=== PATIENT | male | born 1960 | race Caucasian/White ===

== ENCOUNTER 2023-06-12 05:52 | Inpatient (IN) | payer OTHER ==
[2023-06-12 06:27] LABS: #Basophils 0.1 thou/uL (0.0-0.2); #Monocytes 0.6 thou/uL (0.11-0.59); #Neutrophils 5.6 thou/uL (1.40-6.50); %Basophils 0.8 % (0.0-1.0); %Eosinophils 0.4 % (0.0-10.0); %Lymphocytes 20.8 % (21.0-51.0); %Monocytes 7.5 % (0.0-10.0); %Neutrophils 70.2 % (42.0-75.0); Hematocrit 44.3 % (42.0-52.0); Hemoglobin 14.5 g/dL (14.0-18.0); Mean Corpuscular HGB CONC 32.7 g/dL (32.0-36.0); Mean Corpuscular Hemoglobin 29.5 pg (27.0-31.0); Mean Corpuscular Volume 90.2 fl (78.0-98.0); Mean Platelet Volume 10.6 fL (7.4-10.4); Platelet Count 255 10x3/uL (130-400); RBC Distribution Width 12.8 % (11.5-14.5); Red Blood Cell (RBC) Count 4.91 mill/uL (4.70-6.10)
[2023-06-12 06:54] LABS: Troponin I Less than 0.010 ng/mL (< 0.028)
[2023-06-12 07:11] LABS: ALT (SGPT) 15 U/L (8-55); AST (SGOT) 14 U/L (5-34); Albumin 3.6 g/dL (3.4-4.8); Alkaline Phosphatase 47 U/L (40-110); Anion Gap 13 mmol/L (10-20); BUN (Urea Nitrogen) 15 mg/dL (8.4-25.7); Bilirubin, Total 0.4 mg/dL (0.2-1.2); Calc. Creatinine Clearance 0 mL/min (70-130); Calcium 8.6 mg/dL (7.8-10.44); Carbon Dioxide 24 mmol/L (23-31); Chloride 104 mmol/L (98-107); Estimated GFR 53; Globulin 2.8 g/dL (2.4-3.5); Glucose 149 mg/dL (80-115); Potassium 4.6 mmol/L (3.5-5.1); Protein, Total 6.4 g/dL (5.8-8.1); Sodium 136 mmol/L (136-145)
[2023-06-12] MEDS ORDERED: Aspirin Chewable 81 MG TAB ONE (07:12)
[2023-06-12] MEDS ORDERED: Acetaminophen 500 MG TAB ONE (07:12)
[2023-06-12] MEDS ORDERED: Sodium Chloride 0.9% 1,000 ML IV SCH (09:30)
[2023-06-12 10:13] LABS: Troponin I Less than 0.010 ng/mL (< 0.028)
[2023-06-12 13:31] VITALS: BMI 33.0
[2023-06-12 14:27] LABS: Troponin I Less than 0.010 ng/mL (< 0.028)
[2023-06-12] MEDS ORDERED: Ketorolac Tromethamine 30 MG/ML VIAL IVP SCH (15:00)
[2023-06-12] MEDS: Ondansetron ODT 4 MG TAB PO PRN ×2 (15:12→20:36)
[2023-06-12] MEDS: Acetaminophen 325 MG TAB PO PRN ×2 (15:12→20:36)
[2023-06-12] MEDS: Carvedilol 6.25 MG TAB PO SCH (16:35)
[2023-06-12] MEDS ORDERED: Carvedilol 6.25 MG TAB PO SCH (17:00)
[2023-06-12] MEDS ORDERED: Nitroglycerin 0.4 MG TAB (25 Tab Bottle) SL PRN (17:02)
[2023-06-12] MEDS ORDERED: traZODone HCl 50 MG TAB PO PRN (17:40)
[2023-06-12] MEDS ORDERED: Promethazine 25 MG TAB PO SCH (18:30)
[2023-06-12] MEDS: Atorvastatin Calcium 40 MG TAB PO SCH (20:36)
[2023-06-12] MEDS ORDERED: Lisinopril 20 MG TAB PO SCH (21:00)
[2023-06-12] MEDS: Melatonin 3 MG TAB PO PRN (21:45)
[2023-06-13 05:03] LABS: Anion Gap 12 mmol/L (10-20); BUN (Urea Nitrogen) 16 mg/dL (8.4-25.7); Calc. Creatinine Clearance 79 mL/min (70-130); Calcium 8.7 mg/dL (7.8-10.44); Carbon Dioxide 23 mmol/L (23-31); Chloride 100 mmol/L (98-107); Estimated GFR 57; Glucose 115 mg/dL (80-115); Potassium 4.3 mmol/L (3.5-5.1); Sodium 131 mmol/L (136-145)
[2023-06-13] MEDS: Hydrochlorothiazide 25 MG TAB PO SCH (08:37)
[2023-06-13] MEDS: Acetaminophen 325 MG TAB PO PRN ×3 (08:37→17:34)
[2023-06-13] MEDS: Lisinopril 20 MG TAB PO SCH (08:38)
[2023-06-13] MEDS: Citalopram 20 MG TAB PO SCH (08:39)
[2023-06-13] MEDS: Aspirin 81 mg Enteric Coated Tablet PO SCH (08:39)
[2023-06-13] MEDS: Carvedilol 6.25 MG TAB PO SCH ×2 (08:39→17:34)
[2023-06-13] MEDS ORDERED: Non-Formulary Item 1 EACH (Trazodone Hcl [Trazodone Hcl] 100 MG Tablet) PO SCH (09:00)
[2023-06-13] MEDS: Melatonin 3 MG TAB PO PRN (21:41)
[2023-06-13] MEDS: Atorvastatin Calcium 40 MG TAB PO SCH (21:41)
[2023-06-14] MEDS: Lisinopril 20 MG TAB PO SCH (06:07)
[2023-06-14] MEDS: Citalopram 20 MG TAB PO SCH (06:07)
[2023-06-14] MEDS: Aspirin 81 mg Enteric Coated Tablet PO SCH (06:08)
[2023-06-14] MEDS: Acetaminophen 325 MG TAB PO PRN ×3 (07:52→18:23)
[2023-06-14] MEDS ORDERED: ADENOSINE 60 MG/20 ML SDV ONE (09:05)
[2023-06-14] MEDS: Carvedilol 6.25 MG TAB PO SCH ×2 (11:50→16:44)
[2023-06-14] MEDS: Hydrochlorothiazide 25 MG TAB PO SCH (11:51)
[2023-06-14] MEDS ORDERED: Lidocaine 1% w/Epinephrine 1:100K 20 ML VIAL ONE (12:14)
[2023-06-14] MEDS: Atorvastatin Calcium 40 MG TAB PO SCH (21:03)
[2023-06-14] MEDS: Melatonin 3 MG TAB PO PRN (21:04)
[2023-06-15] MEDS: Carvedilol 6.25 MG TAB PO SCH ×2 (06:33→16:59)
[2023-06-15] MEDS: Acetaminophen 325 MG TAB PO PRN ×2 (06:34→12:30)
[2023-06-15] MEDS: Lisinopril 20 MG TAB PO SCH (08:39)
[2023-06-15] MEDS: Citalopram 20 MG TAB PO SCH (08:39)
[2023-06-15] MEDS: Hydrochlorothiazide 25 MG TAB PO SCH (08:41)
[2023-06-15] MEDS: Aspirin 81 mg Enteric Coated Tablet PO SCH (08:41)
[2023-06-15] MEDS ORDERED: Vancomycin 1 GM in Premix Bag 1 BAG IVPB SCH (12:00)
[2023-06-15] MEDS: hydrALAZINE 25 MG TAB PO PRN ×3 (13:08→20:38)
[2023-06-15] MEDS: Melatonin 3 MG TAB PO PRN (20:28)
[2023-06-15] MEDS: Atorvastatin Calcium 40 MG TAB PO SCH (20:28)
[2023-06-15] MEDS ORDERED: hydrOXYzine 25 MG TAB PO SCH (20:30)
[2023-06-16] MEDS: hydrALAZINE 25 MG TAB PO PRN ×2 (04:27→15:37)
[2023-06-16] MEDS ORDERED: Amlodipine 5 MG TAB PO SCH (09:00)
[2023-06-16] MEDS: Hydrochlorothiazide 25 MG TAB PO SCH (09:22)
[2023-06-16] MEDS: Lisinopril 20 MG TAB PO SCH (09:23)
[2023-06-16] MEDS: Carvedilol 6.25 MG TAB PO SCH ×2 (09:23→17:11)
[2023-06-16] MEDS: Citalopram 20 MG TAB PO SCH (09:23)
[2023-06-16] MEDS: Aspirin 81 mg Enteric Coated Tablet PO SCH (09:23)
[2023-06-16 09:41] LABS: #Basophils 0.1 thou/uL (0.0-0.2); #Eosinphils 0.1 thou/uL (0.0-0.7); #Monocytes 0.9 thou/uL (0.11-0.59); #Neutrophils 5.4 thou/uL (1.40-6.50); %Basophils 0.9 % (0.0-1.0); %Eosinophils 1.3 % (0.0-10.0); %Lymphocytes 22.9 % (21.0-51.0); %Monocytes 10.8 % (0.0-10.0); %Neutrophils 63.7 % (42.0-75.0); Hematocrit 45.2 % (42.0-52.0); Hemoglobin 14.9 g/dL (14.0-18.0); Mean Corpuscular Volume 88.1 fl (78.0-98.0); Mean Platelet Volume 10.3 fL (7.4-10.4); Platelet Count 296 10x3/uL (130-400); RBC Distribution Width 12.7 % (11.5-14.5); Red Blood Cell (RBC) Count 5.13 mill/uL (4.70-6.10); White Blood Cell (WBC) Count 8.4 10x3/uL (4.8-10.8)
[2023-06-16 09:57] LABS: Anion Gap 12 mmol/L (10-20); BUN (Urea Nitrogen) 18 mg/dL (8.4-25.7); Calc. Creatinine Clearance 83 mL/min (70-130); Calcium 9.1 mg/dL (7.8-10.44); Carbon Dioxide 28 mmol/L (23-31); Chloride 98 mmol/L (98-107); Estimated GFR 61; Glucose 108 mg/dL (80-115); Potassium 3.9 mmol/L (3.5-5.1); Sodium 134 mmol/L (136-145)
[2023-06-16 15:28] VITALS: TEMP 98
[2023-06-16] MEDS: Acetaminophen 325 MG TAB PO PRN (17:11)
[2023-06-16 18:15] VITALS: BP 170/79
== END 2023-06-16 18:00 | DRG 261 ==
LOC: ERS 05:52 → EEVIPCON 05:52 → 2NO 09:17 → OBSVTOIN 06-13 08:46
PROVIDERS: ADMIT Internal Medicine; ATTEND Internal Medicine
PROC: 0JH602Z Insertion of Monitoring Device into Chest Subcutaneous Tissue and Fascia, Open Approach (ICD-10-PCS; principal; 2023-06-14)
DX: R55 Syncope and collapse (principal); T81.40XA Infection following a procedure, unspecified, initial encounter; E78.5 Hyperlipidemia, unspecified; K21.9 Gastro-esophageal reflux disease without esophagitis; I25.10 Atherosclerotic heart disease of native coronary artery without angina pectoris; M19.90 Unspecified osteoarthritis, unspecified site; E86.0 Dehydration; N18.30 Chronic kidney disease, stage 3 unspecified; E66.9 Obesity, unspecified; I12.9 Hypertensive chronic kidney disease with stage 1 through stage 4 chronic kidney disease, or unspecified chronic kidney disease; I25.2 Old myocardial infarction; Z98.890 Other specified postprocedural states; Z88.8 Allergy status to other drugs, medicaments and biological substances
CPT/HCPCS: 33285; 36415; 70450; 70486; 71045; 72125; 78452; 80048; 80053; 83735; 83880; 84484; 85025; 93005; 93010; 93017; 93306; 96360; 96361; 96374; A9500; C1764; G0378; J0153; J1885; J3370-JW; Q0162; Q0169